=== PATIENT | female | born 1990 | race Hispanic/Latino ===

== ENCOUNTER 2017-11-03 11:26 | Emergency (ER) | payer OTHER ==
[2017-11-03] MEDS: ACETAMINOPHEN 325 MG TAB PO (13:20)
[2017-11-03] MEDS: ONDANSETRON 4 MG ORAL DISINTEGRATING TAB (Q0162 PER 1MG) PO (13:20)
[2017-11-07 14:59] LABS: BEDSIDE GLUCOSE 84 MG/DL (70-105)
== END 2017-11-03 14:35 | disposition home or self-care (01) ==
LOC: M ED 11:26
DX: A08.4 Viral intestinal infection, unspecified (principal); E86.0 Dehydration; R51 Headache
CPT/HCPCS: Q0162